=== PATIENT | female | born 1980 | race Caucasian/White ===

== ENCOUNTER 2016-04-19 12:57 | Emergency (ER) | payer SELFPAY ==
[2016-04-19 13:09] VITALS: BP 137/80; PULSE 96; TEMP 99.6; BMI 31.2
--- NOTE | 2016-04-19 13:37 | EDPRACDOC ---
- General Information Stated Complaint: COUGH X1 MONTH ACHING LT EAR PAIN TEMP 101@HOME Time Seen by Provider: 04/19/16 13:32 Information Source: Patient Home Medications: Home Medications Acetaminophen with Codeine [TYLENOL WITH CODEINE; [employer] with Codeine] 10 ml PO Q6H PRN #120 ml 04/19/16 Oseltamivir Phosphate [Tamiflu] 75 mg PO BID #10 capsule 04/19/16 Prednisone [Deltasone, Orasone] 20 mg PO DAILY #20 tab 04/19/16 Allergies/Adverse Reactions: Allergies Allergy/AdvReac Type Severity Reaction Status Date / Time Penicillins Allergy Severe Hives* Verified 04/19/16 13:36 - History of Present Illness HPI: Pt c/o green productive cough, congestion, R earache, sore throat, body aches, fever 102, sob x 2 days. Pt states had congestion and cough x 1 month. Denies abd pain, n/v, changes in bowel or bladder, rash. Current Symptoms: Reports: Cough, Earache, Fever, Nasal Symptoms, Sore Throat, Myalgia Shortness of Breath: Mild Cough: Reports: Productive, Green Rhinorrhea: Reports: Clear Ear Symptoms: Reports: Earache Fever Severity/Quality: Reports: greater than 100.5 F Oral Intake: Normal Urinary Output: Normal Relevant History of: None Associated Signs & Symptoms:: Reports: Cough, Earache, Fever, Nasal Symptoms, Sore Throat, Myalgia ED Past Medical History - History Reviewed Yes Nurses notes reviewed and agree except as marked - Patient Medical History Cardiac History: Reports: Hypertension Respiratory History: Reports: Asthma - Social Medical History Smoking Status: Heavy tobacco smoker (5 or more cigarettes/day or daily pipe/ cigar) ETOH: None Substance Abuse: None EDM Review of Systems - Review of Systems Constitutional: Fever Ears: Pain Throat: Pain Nose: Congestion Mouth: No Symptoms Reported. negative: Pain, Drooling Respiratory: Cough, Shortness of Breath Cardiovascular: No Symptoms Reported. negative: Chest Pain, Palpitations, Syncope, Edema, Orthopnea, PND, Skin Mottling, Cyanosis Gastrointestinal: No Symptoms Reported. negative: Pain, Constipation, Nausea, Vomiting, Diarrhea, Melena, Formula Intolerance Genitourinary: No Symptoms Reported. negative: Dysuria, Hematuria, Frequency, Discharge, Bleeding, Testicular Pain, Neurological: No Symptoms Reported. negative: Headache, Dizziness, Seizure, Numbness, Weakness, Speech Difficulty, Gait Difficulty Musculoskeletal: Other (body aches) Integumentary: No Symptoms Reported. negative: Itching, Rash, Bruising, Wound Allergic/Immunologic: No Symptoms Reported. negative: Hives, Itching Hematologic: No Symptoms Reported. negative: Lymphadenopathy, Easy Bruising, Easy Bleeding Psychiatric: No Symptoms Reported. negative: Anxiety, Depression, Hallucinations, Insomnia, Suicidal - Physical Exam Constitutional: Alert Oriented to: Time, Person, Place Last recorded Vital Signs: Last Vital Signs Temp 99.6 F 04/19/16 13:08 Pulse 96 04/19/16 13:08 Resp 18 04/19/16 13:08 BP 137/80 04/19/16 13:08 Pulse Ox 97 04/19/16 13:08 Oxygen Pulse Oxygen Saturation 97 O2 Device Room Air Oxygen Flow Rate Fraction of Inspired Oxygen ( FIO2) - HEENT Head: Normal ( normocephalic) Eye Exam: Normal (PERRL, EOMI, Sclera white) Oropharynx: Normal (Pharynx:Moist without exudate,Gums-no swelling) Tympanic Membrane: Normal ENT EAC: Normal Nose: Congestion Neck: Normal (FROM, trachea at midline) - Respiratory/Cardiovascular Respiratory: Normal - CTA (BBS clear to auscultation without adventitious sounds ) Cardiovascular: Normal (RRR without murmur, gallop or rub) - GI Auscultation: Normal (NABS) Palpation: Normal (Soft,No rebound or guarding, non distended) Tenderness: Non tender - Musculoskeletal Back: Normal (Non-Tender) Extremities: Normal (Normal tone, Pulses 2+ No cyanosis or edema, FROM) - Integumentary Skin: Normal, Warm, Dry Lymphatics: Normal (no adenopathy) - Neurologic Memory Impaired: Normal Motor Function: Normal (Normal tone, Pulses 2+ No cyanosis or edema, FROM) Mood Description: Normal Perception: Normal - Differential Diagnosis Bronchitis, Influenza A B, Pneumonia, URI, Viral - Diagnostic Imaging Chest Image interpreted by: Radiologist IMPRESSION: No active cardiopulmonary disease. Decision Time to Discharge: 14:04 - Departure Disposition: Home Condition: Good Final Diagnosis: Acute bronchitis, Influenza Instructions: Acute Bronchitis (ED), Influenza (ED) Education/Counseling Given To: Patient Education/Counseling Given Regarding: Diagnosis, Treatment, Follow Up Referrals: Tati Grey, [employer] [Primary Care Provider] - One Week Prescriptions: New Acetaminophen with Codeine [TYLENOL WITH CODEINE; [employer] with Codeine] 10 ml PO Q6H PRN #120 ml PRN Reason: Cough Oseltamivir Phosphate [Tamiflu] 75 mg PO BID #10 capsule Prednisone [Deltasone, Orasone] 20 mg PO DAILY #20 tab Additional Instructions: Albuterol MDI 1-2 puffs every 4-6 hours as needed for shortness of breath.
--- NOTE | 2016-04-19 13:56 | DIRPT ---
CLINICAL DATA: Productive cough with congestion for 1 month. EXAM: CHEST 2 VIEW COMPARISON: 07/07/2014. FINDINGS: The heart size and mediastinal contours are within normal limits. Both lungs are clear. The visualized skeletal structures are unremarkable. IMPRESSION: No active cardiopulmonary disease. Electronically Signed By: Gray Saucedo M.D. On: 04/19/2016 13:54
[2016-04-19] MEDS ORDERED: ALBUTEROL 6.7 GM MDI INH ONE (14:04)
== END 2016-04-19 14:13 | disposition home or self-care (01) ==
LOC: EDMC 12:57
DX: J11.1 Influenza due to unidentified influenza virus with other respiratory manifestations (principal); J20.9 Acute bronchitis, unspecified
CPT/HCPCS: 71020; 94640; 99282; J3490